=== PATIENT | female | born 1985 | race American Indian/Alaskan Native ===

== ENCOUNTER 2021-07-03 17:15 | Emergency (ER) | payer SELFPAY ==
--- NOTE | 2021-07-03 21:48 | Emergency Department Report ---
ED Fall HPI - General Chief Complaint: Fall Stated Complaint: PAIN Time Seen by Provider: 07/03/21 21:17 Source: patient Mode of arrival: Ambulatory - History of Present Illness Initial Comments: 36-year-old F [place] female with asthma department complaining of accidental slip and fall on a well quite onto a hard surface which occurred this past Thursday about 3 to 4 days ago. States that she landed on her buttocks and then she rolled over to her right to get up causing some pain discomfort to her left knee. She reports no numbness or tingling, no loss of bowel bladder no saddle paresthesia but pain is dull and throbbing worse with palpation and range of motion in the area of her tailbone, radiates up to her lumbar region. MD Complaint: fall Place Fall Occurred: home Loss of Consciousness: none Prolonged Down Time?: no Symptoms Prior to Fall: none Severity: moderate Quality: dull, aching Context: tripped/slipped Associated Symptoms: other - Related Data Home Medications Medication Instructions Recorded Confirmed Last Taken Ferrous Sulfate [Feosol] 325 mg PO BID 08/30/14 08/30/14 08/27/14 NIFEdipine [NIFEdipine ER] 60 mg PO DAILY 08/30/14 08/30/14 08/30/14 OXcarbazepine [Trileptal] 150 mg PO BID 08/30/14 08/30/14 08/27/14 Vit-Fe Fumar-FA [ 1 tab PO DAILY 08/30/14 08/30/14 08/27/14 Vitamin] labetaloL [Labetalol 200mg TAB] 200 mg PO BID 08/30/14 08/30/14 08/30/14 Previous Rx's Medication Instructions Recorded Last Taken Type Ibuprofen [Motrin] 800 mg PO Q8H PRN #30 tablet 08/30/14 Unknown Rx HYDROcodone/APAP 7.5-325 [Ridge 1 each PO Q8HR PRN #15 tablet 01/20/15 Unknown Rx 7.5/325] Ketorolac [Toradol] 10 mg PO Q6H PRN #10 07/03/21 Unknown Rx Allergies Allergy/AdvReac Type Severity Reaction Status Date / Time No Known Allergies Allergy Unverified 08/30/14 12:35 ED Review of Systems ROS: Stated complaint: PAIN Other details as noted in HPI Comment: All other systems reviewed and negative ED Past Medical Hx - Past Medical History Previous Medical History?: Yes Hx Hypertension: Yes (post-) Hx Psychiatric Treatment: Yes (Anxiety, Bipolar, Depression) - Surgical History Past Surgical History?: No - Social History Smoking Status: Never Smoker Substance Use Type: None - Medications Home Medications: Home Medications Medication Instructions Recorded Confirmed Last Taken Type Ferrous Sulfate [Feosol] 325 mg PO BID 08/30/14 08/30/14 08/27/14 History Ibuprofen [Motrin] 800 mg PO Q8H PRN #30 tablet 08/30/14 Unknown Rx NIFEdipine [NIFEdipine ER] 60 mg PO DAILY 08/30/14 08/30/14 08/30/14 History OXcarbazepine [Trileptal] 150 mg PO BID 08/30/14 08/30/14 08/27/14 History Vit-Fe Fumar-FA [ 1 tab PO DAILY 08/30/14 08/30/14 08/27/14 History Vitamin] labetaloL [Labetalol 200mg TAB] 200 mg PO BID 08/30/14 08/30/14 08/30/14 History HYDROcodone/APAP 7.5-325 [Ridge 1 each PO Q8HR PRN #15 tablet 01/20/15 Unknown Rx 7.5/325] Ketorolac [Toradol] 10 mg PO Q6H PRN #10 07/03/21 Unknown Rx ED Physical Exam - General Limitations: No Limitations General appearance: alert, in no apparent distress - Head Head exam: Present: atraumatic, normocephalic - Eye Eye exam: Present: normal appearance, PERRL, EOMI Pupils: Present: normal accommodation - ENT ENT exam: Present: normal exam, normal orophraynx, mucous membranes moist, TM's normal bilaterally - Neck Neck exam: Present: normal inspection, full ROM - Respiratory Respiratory exam: Present: normal lung sounds bilaterally. Absent: respiratory distress - Cardiovascular Cardiovascular Exam: Present: regular rate, normal rhythm. Absent: systolic murmur, diastolic murmur, rubs, gallop - GI/Abdominal GI/Abdominal exam: Present: soft, normal bowel sounds - Extremities Exam Extremities exam: Present: normal inspection - Back Exam Back exam: Present: normal inspection, tenderness, vertebral tenderness (To the tailbone region with palpation. Minimal spasm is noted.). Absent: paraspinal tenderness - Neurological Exam Neurological exam: Present: alert, oriented X3, CN II-XII intact, normal gait - Psychiatric Psychiatric exam: Present: normal affect, normal mood - Skin Skin exam: Present: warm, dry, intact, normal color. Absent: rash ED Course Vital Signs 07/03/21 19:29 Temperature 98.1 F Pulse Rate 96 H Respiratory 16 Rate Blood Pressure 127/71 O2 Sat by Pulse 100 Oximetry ED Medical Decision Making - Medical Decision Making Pt presents the emergency department complaining of back pain most consistent with coxalgia back Pain Most Consistent with Strain/Contusion. Differential Diagnosis Includes Lumbar Go Versus Musculoskeletal Spasm, Strain Versus Sciatica. No Back Pain Red Flags on History or Physical. Presentation Not Consistent with Malignancy, Fracture, Cauda Equina, Abdominal Aortic Aneurysm, Viscus Perforation, Pulmonary Embolism, Renal Colic, Pyelonephritis. Patient reports no B symptoms, trauma trauma, incontinence, saddle anesthesia, distal weakness, urinary symptoms and is a febrile. I did recommend a x-ray of the lumbar region however she refused states she will return if her pain returns or she worsens. Critical care attestation.: If time is entered above; I have spent that time in minutes in the direct care of this critically ill patient, excluding procedure time. ED Disposition Clinical Impression: Coccydynia Disposition: 01 HOME / SELF CARE / HOMELESS Is pt being admited?: No Does the pt Need Aspirin: No Condition: Stable Instructions: How to Use Cold Therapy, [id number], Contusion, Sacroiliac Joint Dysfunction, Tailbone Injury, [id number], Tailbone Injury Prescriptions: Ketorolac [Toradol] 10 mg PO Q6H PRN #10 PRN Reason: Pain Referrals: PRIMARY CAREMD [Primary Care Provider] - 3-5 Days SHANELL LUCERO MD [Staff Physician] - 3-5 Days
[2021-07-03 22:22] VITALS: BP 131/89
== END 2021-07-03 22:19 | disposition home or self-care (01) ==
LOC: ED 17:15
DX: M53.3 Sacrococcygeal disorders, not elsewhere classified (principal); I10 Essential (primary) hypertension; F41.9 Anxiety disorder, unspecified; F31.9 Bipolar disorder, unspecified; Z79.899 Other long term (current) drug therapy; W18.39XA Other fall on same level, initial encounter; Y93.89 Activity, other specified; Y92.89 Other specified places as the place of occurrence of the external cause; Y99.8 Other external cause status
CPT/HCPCS: 99282